=== PATIENT | male | born 1985 | race Hispanic/Latino ===

== ENCOUNTER 2021-12-01 20:57 | Emergency (ER) | payer SELFPAY ==
[2021-12-01] MEDS ORDERED: Ketorolac Tromethamine 30 MG/ML VIAL ONE (22:51)
== END 2021-12-01 23:19 | disposition home or self-care (01) ==
LOC: ERS 20:57
DX: S02.40FA Zygomatic fracture, left side, initial encounter for closed fracture (principal); Y99.0 Civilian activity done for income or pay
CPT/HCPCS: 70486; 96372; J1885

== ENCOUNTER 2025-04-03 10:04 | Emergency (ER) | payer SELFPAY ==
[2025-04-03] MEDS ORDERED: CEFAZOLIN 2 GM VIAL ONE (10:52)
[2025-04-03] MEDS ORDERED: Boostrix 0.5 ML (Tdap) VIAL (>/=7 yrs of age) ONE (11:33)
[2025-04-03] MEDS ORDERED: Lidocaine 1% PF 5 ML VIAL ONE (12:00)
== END 2025-04-03 13:04 ==
LOC: ERS 10:04
DX: S62.634A Displaced fracture of distal phalanx of right ring finger, initial encounter for closed fracture (principal); Z23 Encounter for immunization; W23.0XXA Caught, crushed, jammed, or pinched between moving objects, initial encounter
CPT/HCPCS: 12001; 90471; 90715; 96374